=== PATIENT | female | born 1945 | race Caucasian/White ===

== ENCOUNTER 2018-05-06 11:35 | Emergency (ER) | payer OTHER ==
--- NOTE | 2018-05-06 13:03 | RAD REPORT ---
EXAM DESCRIPTION: RAD - Ankle Left 3 View -05/06/2018 12:49 pm CLINICAL HISTORY: Left ankle pain status post injury FINDINGS: No fracture or dislocation is seen. Soft tissue swelling is present laterally
--- NOTE | 2018-05-06 13:35 | RAD REPORT ---
EXAM DESCRIPTION: RAD - Foot Left 3 View - 05/06/2018 12:48 pm CLINICAL HISTORY: Pain;Swelling COMPARISON: No comparisons FINDINGS: Soft tissue swelling is seen along the dorsum of the forefoot. Mild hallux valgus is prese nt. No acute fracture or dislocation present.
--- NOTE | 2018-05-06 14:00 | ER ---
Nurse's Notes [facility] Name: Yolande Levi Age: 72 yrs Sex: Female : 1945 Arrival Date: 05/06/2018 Time: 11:39 Bed 14 Private MD: Rodger Guzman Diagnosis: Sprain of ankle;Sprain of foot Presentation: 05/06 11:49 Presenting complaint: Patient states: " I rolled my ankle and fell 2 days ago and my L ph foot really hurts." Swelling and bruising noted to L foot, pt denies LOC or head injury. Transition of care: patient was not received from another setting of care. Onset of symptoms was May 06, 2018. Risk Assessment: Do you want to hurt yourself or someone else? Patient reports no desire to harm self or others. Initial Sepsis Screen: Does the patient meet any 2 criteria? No. Patient's initial sepsis screen is negative. Does the patient have a suspected source of infection? No. Patient's initial sepsis screen is negative. Care prior to arrival: None. 11:49 Method Of Arrival: Wheelchair ph 11:49 Acuity: RONALDO 4 ph Triage Assessment: 14:00 General: Appears uncomfortable, Behavior is calm, cooperative. rb1 Historical: - Allergies: 11:47 No Known Allergies; ph - Home Meds: 11:47 Lisinopril Oral [Active]; Hydrochlorothiazide Oral [Active]; atorvastatin oral oral ph [Active]; - PMHx: 11:47 Hyperlipidemia; Hypertension; ph - PSHx: 11:47 Tubal ligation; Tonsillectomy; Breast biopsy; ph - Immunization history: Last tetanus immunization: unknown. - Social history:: Smoking status: Patient uses tobacco products, smokes one pack cigarettes per day. - Ebola Screening: : Patient negative for fever greater than or equal to 101.5 degrees Fahrenheit, and additional compatible Ebola Virus Disease symptoms. Screenin:00 Abuse screen: Denies threats or abuse. Nutritional screening: No deficits noted. rb1 Tuberculosis screening: No symptoms or risk factors identified. Fall Risk Fall in past 12 months (25 points). Secondary diagnosis (15 points) impaired mobility, No IV (0 pts). Ambulatory Aid- None/Bed Rest/Nurse Assist (0 pts). Gait- Impaired (20 pts.). Mental Status- Oriented to own ability (0 pts). Total Price Fall Scale indicates High Risk Score (45 or more points). Fall prevention measures have been instituted. Side Rails Up X 2 Placed Close to Nursing Station 1:1 Attendant Assigned Frequent Obs/Assessments Occuring Family Present and informed to notify staff if the need to leave the bedside As available patient and family educated on Fall Prevention Program and Strategies. Primary Survey: 11:50 A: Airway: patent. Breathing/Chest: Respiratory pattern: regular, Chest inspection: ph symmetrical rise and fall of the chest. Circulation: Skin color: pink, Skin temperature: warm, dry. Disability Alert. Assessment: 14:00 General: Appears uncomfortable, Behavior is calm, cooperative. Pain: Complains of pain rb1 in left foot Pain currently is 4 out of 10 on a pain scale. Pain began x 2 days. Pain: Aggravated by weight bearing. Neuro: Level of Consciousness is awake, alert, obeys commands, Oriented to person, place, time, situation. Cardiovascular: Capillary refill < 3 seconds is brisk in bilateral toes. Respiratory: Airway is patent Respiratory effort is even, unlabored, Respiratory pattern is regular, symmetrical. GI: No signs and/or symptoms were reported involving the gastrointestinal system. : No signs and/or symptoms were reported regarding the genitourinary system. Derm: Bruising that is dark purple, on left foot. Musculoskeletal: Swelling present in left foot. 14:40 Reassessment: Patient appears in no apparent distress at this time. No changes from rb1 previously documented assessment. at bedside. Vital Signs: 11:47 BP 133 / 75; Pulse 82; Resp 18; Temp 98.1; Pulse Ox 92% on R/A; Weight 65.77 kg; Height ph 5 ft. 4 in. (162.56 cm); Pain 5/10; 14:00 BP 141 / 76; Pulse 80; Resp 17; Pulse Ox 96% on R/A; Pain 5/10; rb1 14:54 BP 147 / 85; Pulse 76; Resp 17; Pulse Ox 95% on R/A; Pain 4/10; rb1 11:47 Body Mass Index 24.89 (65.77 kg, 162.56 cm) ph ED Course: 11:39 Patient arrived in ED. sb2 11:39 Rodger Guzman MD is Private Physician. sb2 11:48 Arm band placed on. ph 11:50 Triage completed. ph 11:52 X-ray ordered. Affected limb iced. ph 12:44 X-ray completed. Patient tolerated procedure well. Patient moved to radiology via jb2 wheelchair. Patient moved back from radiology. 12:45 XRAY Ankle LEFT 3 view In Process Unspecified. EDMS 12:45 XRAY Foot LEFT 3 View In Process Unspecified. EDMS 13:55 Evelin Robledo FNP-C is [facility]. kb 13:55 Thad Webb MD is Attending Physician. kb 14:00 Patient has correct armband on for positive identification. Bed in low position. Call rb1 light in reach. Side rails up X 1. Pulse ox on. NIBP on. 14:10 Kirsty Rogel, RN is Primary Nurse. rb1 14:54 No provider procedures requiring assistance completed. Patient did not have IV access rb1 during this emergency room visit. Administered Medications: No medications were administered Outcome: 14:00 Discharge ordered by . kb 14:54 Patient left the ED. rb1 14:54 Discharged to home via wheelchair, with family. rb1 14:54 Condition: stable 14:54 Discharge instructions given to patient, Instructed on discharge instructions, follow up and referral plans. medication usage, Demonstrated understanding of instructions, follow-up care, medications, Prescriptions given X 1. Signatures: Dispatcher [employer] EDPA Evelin Robledo FNP-C FNP-Ckb Buechter, Jesse jb2 Christelle Henry RN RN Kirsty Rogel, REYES RN [facility] Hillary Longoria sb2
--- NOTE | 2018-05-06 14:00 | EDPHYS ---
Physician Documentation [facility] Name: Yolande Levi Age: 72 yrs Sex: Female : 1945 Arrival Date: 05/06/2018 Time: 11:39 Bed 14 Private MD: Rodger Guzman ED Physician Thad Webb HPI: 05/06 14:08 This 72 yrs old Female presents to ER via Wheelchair with complaints of Fall kb Injury - FOOT. 14:08 Details of fall: The patient fell from an upright position, while walking. Onset: The kb symptoms/episode began/occurred 2 day(s) ago. Associated injuries: The patient sustained left foot and anterior aspect of left ankle, ecchymosis, painful injury, swelling. Severity of symptoms: At their worst the symptoms were moderate, in the emergency department the symptoms are unchanged. The patient has not experienced similar symptoms in the past. The patient has not recently seen a physician. Pt states she rolled her ankle while walking a couple of days ago. Swelling and pain have increased so she came to get it checked. Has been walking on it. . Historical: - Allergies: 11:47 No Known Allergies; ph - Home Meds: 11:47 Lisinopril Oral [Active]; Hydrochlorothiazide Oral [Active]; atorvastatin oral oral ph [Active]; - PMHx: 11:47 Hyperlipidemia; Hypertension; ph - PSHx: 11:47 Tubal ligation; Tonsillectomy; Breast biopsy; ph - Immunization history: Last tetanus immunization: unknown. - Social history:: Smoking status: Patient uses tobacco products, smokes one pack cigarettes per day. - Ebola Screening: : Patient negative for fever greater than or equal to 101.5 degrees Fahrenheit, and additional compatible Ebola Virus Disease symptoms. ROS: 14:08 Constitutional: Negative for fever, chills, and weight loss, Cardiovascular: Negative kb for chest pain, palpitations, and edema, Respiratory: Negative for shortness of breath, cough, wheezing, and pleuritic chest pain, Abdomen/GI: Negative for abdominal pain, nausea, vomiting, diarrhea, and constipation, Neuro: Negative for headache, weakness, numbness, tingling, and seizure. 14:08 MS/extremity: Positive for injury or acute deformity, ecchymosis, pain, swelling, tenderness, of the left foot and anterior aspect of left ankle. Exam: 14:08 Constitutional: This is a well developed, well nourished patient who is awake, alert, kb and in no acute distress. Head/Face: Normocephalic, atraumatic. Chest/axilla: Normal chest wall appearance and motion. Nontender with no deformity. No lesions are appreciated. Cardiovascular: Regular rate and rhythm with a normal S1 and S2. No gallops, murmurs, or rubs. Normal PMI, no JVD. No pulse deficits. Respiratory: Lungs have equal breath sounds bilaterally, clear to auscultation and percussion. No rales, rhonchi or wheezes noted. No increased work of breathing, no retractions or nasal flaring. Abdomen/GI: Soft, non-tender, with normal bowel sounds. No distension or tympany. No guarding or rebound. No evidence of tenderness throughout. Neuro: Awake and alert, GCS 15, oriented to person, place, time, and situation. Cranial nerves II-XII grossly intact. Motor strength 5/5 in all extremities. Sensory grossly intact. Cerebellar exam normal. Normal gait. 14:08 Musculoskeletal/extremity: Extremities: grossly normal except: noted in the left foot and anterior aspect of left ankle: ecchymosis, pain, swelling, tenderness, ROM: limited active range of motion due to pain, Circulation is intact in all extremities. Sensation intact. Weight bearing: able to fully bear weight. Vital Signs: 11:47 BP 133 / 75; Pulse 82; Resp 18; Temp 98.1; Pulse Ox 92% on R/A; Weight 65.77 kg; Height ph 5 ft. 4 in. (162.56 cm); Pain 5/10; 14:00 BP 141 / 76; Pulse 80; Resp 17; Pulse Ox 96% on R/A; Pain 5/10; rb1 14:54 BP 147 / 85; Pulse 76; Resp 17; Pulse Ox 95% on R/A; Pain 4/10; rb1 11:47 Body Mass Index 24.89 (65.77 kg, 162.56 cm) ph MDM: 13:55 Patient medically screened. kb 14:08 Data reviewed: vital signs, nurses notes. Data interpreted: Pulse oximetry: on room air kb is 92 %. Interpretation: normal. Counseling: I had a detailed discussion with the patient and/or guardian regarding: the historical points, exam findings, and any diagnostic results supporting the discharge/admit diagnosis, radiology results, the need for outpatient follow up, a orthopedic surgeon, to return to the emergency department if symptoms worsen or persist or if there are any questions or concerns that arise at home. 05/06 11:52 Order name: XRAY Ankle LEFT 3 view; Complete Time: 13:55 05/06 11:52 Order name: XRAY Foot LEFT 3 View; Complete Time: 13:55 05/06 14:00 Order name: Post-op shoe; Complete Time: 14:52 kb Administered Medications: No medications were administered Disposition: 15:34 Co-signature as Attending Physician, Thad Webb MD. rn Disposition: 05/06/18 14:00 Discharged to Home. Impression: Sprain of ankle, Sprain of foot. - Condition is Stable. - Discharge Instructions: Ankle Sprain, [id number]. - Prescriptions for Tramadol 50 mg Oral Tablet - take 1 tablet by ORAL route every 8 hours as needed; 12 tablet. - Medication Reconciliation Form, Thank You Letter, Antibiotic Education, Prescription Opioid Use form. - Follow up: Emergency Department; When: As needed; Reason: Worsening of condition. Follow up: Private Physician; When: 2 - 3 days; Reason: Recheck today's complaints, Continuance of care, Re-evaluation by your physician. Signatures: Dispatcher [employer] EDMS Evelin Robledo, ACCOUNTING FILE CLERK-C ACCOUNTING FILE CLERK-Ckb Thad Webb MD MD rn Hall, Patricia, RN RN ph Barber, Rebecca, RN RN [facility] Corrections: (The following items were deleted from the chart) 14:54 14:00 05/06/2018 14:00 Discharged to Home. Impression: Sprain of ankle; Sprain of foot. rb1 Condition is Stable. Forms are Medication Reconciliation Form, Thank You Letter, Antibiotic Education, Prescription Opioid Use. Follow up: Emergency Department; When: As needed; Reason: Worsening of condition. Follow up: Private Physician; When: 2 - 3 days; Reason: Recheck today's complaints, Continuance of care, Re-evaluation by your physician. kb
== END 2018-05-06 14:54 | disposition home or self-care (01) ==
LOC: ER 11:35
DX: S93.402A Sprain of unspecified ligament of left ankle, initial encounter (principal); S93.602A Unspecified sprain of left foot, initial encounter; W19.XXXA Unspecified fall, initial encounter; Y93.01 Activity, walking, marching and hiking; Y92.9 Unspecified place or not applicable; I10 Essential (primary) hypertension; E78.5 Hyperlipidemia, unspecified; F17.210 Nicotine dependence, cigarettes, uncomplicated
CPT/HCPCS: 99283